=== PATIENT | male | born 1960 ===

== ENCOUNTER 2024-07-23 21:15 | Emergency (ER) | payer SELFPAY ==
[~2024-07-23] VITALS: Ht 170.2 cm; Wt 54.4 kg
[2024-07-23] MEDS ORDERED: RX Prepack Albuterol 1 PREPACK/6.7 GM INH UD ONE (23:30)
== END 2024-07-23 23:41 | disposition home or self-care (01) ==
LOC: ER 21:15
DX: J44.9 Chronic obstructive pulmonary disease, unspecified (principal); Z88.5 Allergy status to narcotic agent
CPT/HCPCS: 71046; 99283-25; A9270